=== PATIENT | female | born 1970 | race Caucasian/White ===

== ENCOUNTER → 2016-10-05 | Outpatient (CLI) | payer OTHER ==
--- NOTE | 2016-10-05 16:38 | REP ---
Left lower extremity deep vein duplex ultrasound: The deep veins demonstrate normal compression, normal Doppler color flow and normal Doppler waveforms with respiration augmentation at multiple levels. There is no deep vein thrombus. Ultrasonography over the area of discomfort in the left calf identifies no solid or cystic masses. Impression: There is no deep vein thrombus. No solid or cystic masses are noted in the area of discomfort in the left calf. Signed by Lonnie Alonso MD 10/05/2016 04:29 P
== END ==
LOC: M LRY 14:53
PROVIDERS: ATTEND Physician Assistant
DX: R25.2 Cramp and spasm (principal)

== ENCOUNTER → 2017-07-06 | Outpatient (CLI) | payer OTHER | LOC: M RAD 14:43 | DX: M50.30 Other cervical disc degeneration, unspecified cervical region (principal); M47.812 Spondylosis without myelopathy or radiculopathy, cervical region; R93.7 Abnormal findings on diagnostic imaging of other parts of musculoskeletal system | CPT/HCPCS: 72141 ==

== ENCOUNTER 2017-08-05 15:15 | Emergency (ER) | payer OTHER ==
[2017-08-05 16:12] LABS: BASO # 0.1 10^3/uL (0.0-0.2); BASO % 0.5 % (0.0-1.0); EOS # 0.2 10^3/uL (0.0-0.50); EOS % 2.1 % (0.0-3.0); HEMATOCRIT 36.1 % (36.0-47.0); HEMOGLOBIN 11.8 g/dl (12.0-15.5); IMMATURE GRANULOCYTE % 0.4 % (0-3.0); LYMPH # 2.5 10^3/uL (1.5-4.5); LYMPH % 25.1 % (24.0-44.0); MEAN CORPUSCULAR HEMOGLOBIN 28.2 pg (27.0-33.0); MEAN CORPUSCULAR HGB CONC 32.7 g/dl (32.0-36.5); MEAN CORPUSCULAR VOLUME 86.2 fl (80.0-96.0); MONO # 0.7 10^3/uL (0.0-0.8); MONO % 6.9 % (0.0-5.0); NEUTROPHILS # 6.4 10^3/uL (1.8-7.7); PLATELET COUNT, AUTOMATED 346 10^3/uL (150-450); RED BLOOD COUNT 4.19 10^6/uL (4.00-5.40); RED CELL DISTRIBUTION WIDTH 14.2 % (11.5-14.5); WHITE BLOOD COUNT 9.9 10^3/uL (4.0-10.0)
[2017-08-05 16:50] LABS: ANION GAP 7 MEQ/L (8-16); BLOOD UREA NITROGEN 8 MG/DL (7-18); CALCIUM LEVEL 8.7 MG/DL (8.5-10.1); CARBON DIOXIDE LEVEL 28 MEQ/L (21-32); CHLORIDE LEVEL 106 MEQ/L (98-107); FREE THYROXINE INDEX 5.5 % (1.3-4.8); GLOMERULAR FILTRATION RATE > 60.0 (>58); GLUCOSE, FASTING 88 MG/DL (70-100); SODIUM LEVEL 141 MEQ/L (136-145); T UPTAKE 38 % (30-39); THYROID STIMULATING HORMONE 0.185 uIU/ML (0.358-3.740); THYROXINE (T4) 14.6 UG/DL (4.5-12.0)
== END 2017-08-05 17:23 | disposition home or self-care (01) ==
LOC: M ED 15:15
DX: J06.9 Acute upper respiratory infection, unspecified (principal); E04.2 Nontoxic multinodular goiter; Z79.899 Other long term (current) drug therapy
CPT/HCPCS: 76536

== ENCOUNTER → 2017-08-05 | Outpatient (REF) | payer OTHER | LOC: M SFHCLERA 14:17 | DX: J02.9 Acute pharyngitis, unspecified (principal) ==